=== PATIENT | male | born 1990 | race Two or more races ===

== ENCOUNTER 2025-04-16 00:16 | Inpatient (IN) | payer MEDICAID, OTHER ==
[~2025-04-16] VITALS: Ht 160 cm; Wt 83.1 kg
[2025-04-16] VITALS (8 sets, daily range): BP systolic 134–146; BP diastolic 81–91; PULSE 75–89; RESP 16–19; TEMP 97.9–98; O2SAT 93–98
--- NOTE | 2025-04-16 00:57 | ECG ---
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
[2025-04-16 01:10] LABS: Basophils # (auto) 0.1 10 ^3/uL (0-0.2); Basophils % (auto) 1.7 % (0.0-2.0); Eosinophils # (auto) 0.3 10 ^3/uL (0-0.8); Eosinophils % (auto) 3.8 % (0.0-7.0); Hematocrit 42.2 % (41.0-53.0); Hemoglobin 14.2 g/dL (13.5-17.5); Lymphocytes # (auto) 2.5 10 ^3/uL (0.4-5.4); Lymphocytes % (auto) 34.1 % (10.0-50.0); Mean Corpuscular Hemoglobin 30.6 pg (28.0-32.0); Mean Corpuscular Hgb Conc. 33.6 g/dL (32.0-36.0); Mean Corpuscular Volume 91.2 fL (80.0-100.0); Monocytes # (auto) 0.7 10 ^3/uL (0-1.3); Monocytes % (auto) 10.2 % (0.0-12.0); Neutrophils # (auto) 3.6 10 ^3/uL (1.6-8.6); Neutrophils % (auto) 50.2 % (37.0-80.0); Nucleated Red Blood Cells % 0.2 %; Platelet Count (auto) 196 10^3/uL (140-450); Red Blood Cells 4.63 10^6/uL (4.5-5.90); Red Cell Distribution Width 12.9 % (11.8-14.3); White Blood Cell 7.2 10^3/uL (4.4-10.8)
--- NOTE | 2025-04-16 01:11 | ED.PDOC ---
HPI Comments 34 year old male presents to the ED with a chief complaint of chest pain onset 4 days. Patient states he has been experiencing LT sided chest pain for the past 4 days noticed pain worsened today. Patient was seen at a different ED about 1 week ago, was told he had a heart murmur, currently has no PCP to follow up. He is also experiencing gum pain s/p tooth extraction, has taken Tylenol at home with no improvement of symptoms. PMHx asthma. Denies nausea, vomiting, dairrhea, abdominal pain, shortness of breath, fevers, chills, cough, congestion. No other symptoms or modifying factors present at this time. Chief Complaint: Chest Pain Time Seen by MD: 01:00 Reviewed Notes: Medications, Allergies Allergies: Coded Allergies: Cyclobenzaprine (Verified Allergy, Unknown, 04/16/25) Ibuprofen (Verified Allergy, Unknown, 04/16/25) Tramadol (Verified Allergy, Unknown, 04/16/25) Information Source: Patient Mode of Arrival: Ambulatory Severity: Moderate Timing: Days Duration: Since onset Prehospital treatment: None Location: Chest (L) Radiation: No Radiation Quality: Sharp Onset: At Rest Cardiac Risk Factors: None PE Risk Factors: None History of: None Modifying Factors: Nothing Past Medical History PAST MEDICAL HISTORY: Asthma Surgical History: Denies all surgeries Family History Family History: Reviewed,noncontributory to illness, No family hx of Cancer, No family hx of DM, No family hx of Heart nyla, No family hx of HTN, No family hx ofKidney nyla, No family hx of Liver nyla, No family hx of Lung nyla, No family hx of Stroke Social History Smoker: Non-Smoker Alcohol: Denies ETOH Use Drugs: Denies Drug Use Lives In: Home Constitutional: denies: chills, diaphoresis, fatigue, fever, malaise, sweats, weakness, others EENTM: reports: others (gum pain s/p tooth extraction); denies: blurred vision, double vision, ear bleeding, ear discharge, ear drainage, ear pain, ear ringing, eye pain, eye redness, hearing loss, mouth pain, mouth swelling, nasal discharge, nose bleeding, nose congestion, nose pain, photophobia, tearing, throat pain, throat swelling, voice changes Respiratory: denies: cough, hemoptysis, orthopnea, SOB at rest, shortness of breath, SOB with excertion, stridor, wheezing, others Cardiovascular: reports: chest pain; denies: dizzy spells, diaphoresis, Dyspnea on exertion, edema, irregular heart beat, left arm pain, lightheadedness, palpitations, PND, syncope, others Gastrointestinal: denies: abdomen distended, abdominal pain, blood streaked bowels, constipated, diarrhea, dysphagia, difficulty swallowing, hematemesis, melena, nausea, poor appetite, poor fluid intake, rectal bleeding, rectal pain, vomiting, others Genitourinary: denies: burning, dysuria, flank pain, frequency, hematuria, incontinence, penile discharge, penile sore, pain, testicle pain, testicle swelling, urgency, others Neurological: denies: dizziness, fainting, headache, left sided numbness, left sided weakness, numbness, paresthesia, pre-existing deficit, right sided numbness, right sided weakness, seizure, speech problems, tingling, tremors, weakness, others Musculoskeletal: denies: back pain, gout, joint pain, joint swelling, muscle pain, muscle stiffness, neck pain, others Integumetry: denies: bruises, change in color, change in hair/nails, dryness, laceration, lesions, lumps, rash, wounds, others Allergic/Immunocompromised: denies: Difficulty Healing, Frequent Infections, Hives, Itching, others Hematologic/Lymphatic: denies: anemia, blood clots, easy bleeding, easy bruising, swollen glands, others Endocrine: denies: excessive hunger, excessive sweating, excessive thirst, excessive urination, flushing, intolerance to cold, intolerance to heat, unexplained weight gain, unexplained weight loss, others Psychiatric: denies: anxiety, bipolar disorder, depression, hopeless, panic disorder, schizophrenia, sleepless, suicidal, others All Other Systems: Reviewed and Negative Physical Exam General Appearance: Normal HEENT: Normal ENT Inspection, Pharynx Normal, TMs Normal Neck: Full Range of Motion, Non-Tender, Normal, Normal Inspection Respiratory: Chest Non-Tender, Lungs Clear, No Accessory Muscle Use, No Respiratory Distress, Normal Breath Sounds Cardiovascular: No Edema, No JVD, No Murmur, No Gallop, Normal Peripheral Pulses, Regular Rate/Rhythm Breast Exam: Deferred Gastrointestinal: No Organomegaly, Non Tender, No Pulsatile Mass, Normal Bowel Sounds, Soft Genitalia: Deferred Pelvic: Deferred Rectal: Deferred Extremities: No calf tenderness, Normal capillary refill, Normal inspection, Normal range of motion, Non-tender, No pedal edema Musculoskeletal : Apperance: Normal Neurologic: Alert, gut carrier II-XII nml as Tested, No Motor Deficits, Normal Affect, Normal Mood, No Sensory Deficits Cerebellar Function: Normal Reflexes: Normal Skin: Dry, Normal Color, Warm Lymphatic: No Adenopathy EKG EKG : Pulse Rate (adult): 105 Cardiac Rhythm: ST Was a procedure done? Was a procedure done?: No CP Differential Dx Differential Diagnosis: A-fib, A-Flutter, Angina, Heart Failure, Hype rthyroidism, IN, Pulmonary Embolus, Other X-Ray, Labs, Meds, VS Vital Signs Date Time Temp Pulse Resp B/P (MAP) Pulse Ox O2 Delivery O2 Flow Rate FiO2 04/16/25 01:11 105 04/16/25 00:56 105 04/16/25 00:54 98.0 109 17 149/92 (111) 95 98.0 Lab Test 04/16/25 01:57 04/16/25 00:59 Range/Units Troponin I High Sensitivity 6 4 </=54 ng/L White Blood Count 7.2 4.4-10.8 10^3/uL Red Blood Count 4.63 4.5-5.90 10^6/uL Hemoglobin 14.2 13.5-17.5 g/dL Hematocrit 42.2 41.0-53.0 % Mean Corpuscular Volume 91.2 80.0-100.0 fL Mean Corpuscular Hemoglobin 30.6 28.0-32.0 pg Mean Corpuscular Hemoglobin Concent 33.6 32.0-36.0 g/dL Red Cell Distribution Width 12.9 11.8-14.3 % Platelet Count 196 140-450 10^3/uL Mean Platelet Volume 8.6 6.9-10.8 fL Neutrophils (%) (Auto) 50.2 37.0-80.0 % Lymphocytes (%) (Auto) 34.1 10.0-50.0 % Monocytes (%) (Auto) 10.2 0.0-12.0 % Eosinophils (%) (Auto) 3.8 0.0-7.0 % Basophils (%) (Auto) 1.7 0.0-2.0 % Neutrophils # (Auto) 3.6 1.6-8.6 10 ^3/uL Lymphocytes # (Auto) 2.5 0.4-5.4 10 ^3/uL Monocytes # (Auto) 0.7 0-1.3 10 ^3/uL Eosinophils # (Auto) 0.3 0-0.8 10 ^3/uL Basophils # (Auto) 0.1 0-0.2 10 ^3/uL Nucleated Red Blood Cells 0.2 % D-Dimer, Quantitative Pending Sodium Level 141 136-145 mmol/L Potassium Level 3.5 3.5-5.1 mmol/L Chloride Level 107 98-107 mmol/L Carbon Dioxide Level 24 20-31 mmol/L Anion Gap 10 5-15 Blood Urea Nitrogen 7 L 9-23 mg/dL Creatinine 0.99 0.700-1.30 mg/dL Glomerular Filtration Rate Calc 103 >90 mL/min BUN/Creatinine Ratio 7.1 L 10.0-20.0 Serum Glucose 91 74-106 mg/dL Calcium Level 9.0 8.7-10.4 mg/dL Total Bilirubin 0.4 0.2-1.0 mg/dL Aspartate Amino Transferase (AST) 61 H <34 U/L Alanine Aminotransferase (ALT) 92 H 7-40 U/L Alkaline Phosphatase 88 46-116 U/L Total Protein 6.9 5.7-8.2 g/dL Albumin 4.6 3.2-4.8 g/dL Time of 1ST Reevaluation: 01:30 Reevaluation 1ST: Unchanged Patient Education/Counseling: Diagnosis, Treatment, Prognosis Family Education/Counseling: No Family Present SEPSIS Sepsis Screen Date sepsis recognized/suspect: Apr 16, 2025 Time Sepsis recognized/suspect: 0048 Recent Procedure: No On Antibiotic Therapy: No Respiratory Rate >20: No Heart Rate >90: No Temp<36 C (96.8 F) or >38.3 C: No SBP <90 or MAP <65 mmHG: No New Acute Mental Status Change: No Is the patient on CPAP, BIPAP,: No Orders/Vitals/Labs Physician Orders Electrocardigram (04/16/25 01:53) Electrocardigram (04/16/25 03:53) Chest Portable (04/16/25 00:55) D-Dimer (04/16/25 03:27) Ct Angio Chest Contrast (04/16/25 05:15) Vital Signs Date Time Temp Pulse Resp B/P (MAP) Pulse Ox O2 Delivery O2 Flow Rate FiO2 04/16/25 01:11 105 04/16/25 00:56 105 04/16/25 00:54 98.0 109 17 149/92 (111) 95 98.0 Laboratory Tests Test 04/16/25 00:59 White Blood Count 7.2 10^3/uL (4.4-10.8) Departure 1 Departure Time of Disposition: 05:11 Impression: Primary Impression: Palpitations Additional Impression: Acute coronary syndrome Disposition: ADMITTED INPATIENT Admit to: Tele Condition: Guarded Discharged With: Self Comments Left-Sided Chest Pain with Suspected Acute Coronary Syndrome Chief Complaint: Left-sided chest pain for 4 days History of Present Illness: 34-year-old male with a history of borderline hypertension presents to the Emergency Department with complaints of left-sided chest pain for the past 4 days. The patient describes the pain as dull in character and reports that it worsens with exertion. This exertional component is concerning for cardiac etiology. The patient was noted to be tachycardic on presentation with a heart rate of 105 bpm. Given the clinical presentation, workup for acute coronary syndrome was initiated, including cardiac enzymes, EKG, chest imaging, and CTA to rule out pulmonary embolism. Review of Systems: Limited review of systems due to focused evaluation for chest pain. Cardiovascular: Positive for chest pain, exertional in nature. Respiratory: No reported shortness of breath, cough, or hemoptysis. Constitutional: No reported fever, chills, or significant weight changes. Medications: Current medications not specified in claim investigator. Medications administered in ED: - Aspirin - Nitroglycerin Past Medical History: Borderline hypertension Vital Signs: Heart Rate: 105 bpm (tachycardic) Other vital signs not documented in claim investigator. Lab Results: AST: 61 (elevated) ALT: 92 (elevated) Chemistry panel: Otherwise unremarkable Initial troponin: Normal at 4 Additional cardiac enzymes pending Imaging and Other Relevant Results: EKG: Tachycardia at 105 bpm, other findings not specified Chest X-ray: Mild left atelectasis versus infiltrate, no acute pathology CTA Chest: Obtained to rule out pulmonary embolus, results pending Medical Decision Making: Summary Statement: 34-year-old male with borderline hypertension presenting with 4 days of exertional, dull, left-sided chest pain, tachycardia, and mildly elevated liver enzymes. Problem List: 1. Chest pain, likely cardiac in origin 2. Tachycardia 3. Borderline hypertension 4. Elevated liver enzymes 5. Mild left atelectasis versus infiltrate on chest X-ray Differential Diagnosis: Acute coronary syndrome, myocarditis, pericarditis, pulmonary embolism, pneumonia, musculoskeletal chest pain, gastroesophageal reflux disease, anxiety. ED Course: Patient presented with concerning chest pain that worsens with exertion. Initial workup included EKG showing tachycardia, lab work with mildly elevated liver enzymes but normal initial troponin, chest X-ray showing possible left-sided infiltrate, and CTA chest to rule out PE (pending). Patient was treated with aspirin and nitroglycerin. Given the concerning presentation for cardiac etiology, decision was made to admit for acute coronary syndrome workup. Assessment and Plan: 1. Chest Pain, suspected Acute Coronary Syndrome: - Admit to telemetry unit for continued cardiac monitoring - Serial cardiac enzymes and EKGs - Continue aspirin therapy - Nitroglycerin as needed for chest pain - Cardiology consultation - Consider stress test or cardiac catheterization based on further evaluation 2. Tachycardia: - Continuous cardiac monitoring - Evaluate for underlying causes (pain, anxiety, cardiac pathology) 3. Borderline Hypertension: - Monitor blood pressure - Assess need for antihypertensive therapy during admission 4. Elevated Liver Enzymes (AST/ALT): - Repeat liver function tests - Consider hepatology consultation if persistently elevated 5. Mild Left Atelectasis versus Infiltrate: - Monitor respiratory status - Consider antibiotics if clinical evidence of pneumonia develops 6. Disposition: Admit to telemetry unit under cardiology service for further evaluation and management of suspected acute coronary syndrome. Additional Notes: Patient admitted for further cardiac evaluation Billing Information: ICD-10: R07.9 - Chest pain, unspecified ICD-10: I20.9 - Angina pectoris, unspecified ICD-10: I10 - Essential (primary) hypertension ICD-10: R00.0 - Tachycardia, unspecified Critical Care Note Critical Care Time?: Yes (35 min-critical care time only) Critical care comment: \ Total critical care time: Approximately 36 minutes Due to a high probability of clinically significant, life threatening deterioration, the patient required my highest level of preparedness to intervene emergently and I personally spent this critical care time directly and personally managing the patient. This critical care time included obtaining a history; examining the patient; pulse oximetry; ordering and review of studies; arranging urgent treatment with development of a management plan; evaluation of patient's response to treatment; frequent reassessment; and, discussions with other providers. This critical care time was performed to assess and manage the high probability of imminent, life-threatening deterioration that could result in multi-organ failure. It was exclusive of separately billable procedures and treating other patients. Stability Stability form required: No Heart Score Heart Score: Heart Score Response (Comments) Value History Moderate Suspicious 1 EKG Repolarization Disturb 1 Age <45 0 Risk Factors 1 or 2 risk factors 1 Troponin Normal limit 0 Total 3 I personally scribed for KEYON DOLAN MD ([email or web address]) on 04/16/25 at 01:11. Electronically submitted by Ade Flower ([email or web address]). KEYON DOLAN MD Apr 16, 2025 01:11
[2025-04-16 01:28] LABS: Albumin 4.6 g/dL (3.2-4.8); Alkaline Phosphatase 88 U/L (46-116); Anion Gap 10 (5-15); BUN/Creatinine Ratio 7.1 (10.0-20.0); Carbon Dioxide 24 mmol/L (20-31); Glucose 91 mg/dL (74-106); Sodium 141 mmol/L (136-145); Total Protein 6.9 g/dL (5.7-8.2)
[2025-04-16 01:29] LABS: Bilirubin, Total 0.4 mg/dL (0.2-1.0)
[2025-04-16 01:33] LABS: Alanine Aminotransferase 92 U/L (7-40); Aspartate Aminotransferase 61 U/L (<34); Blood Urea Nitrogen 7 mg/dL (9-23); Chloride 107 mmol/L (98-107); Potassium 3.5 mmol/L (3.5-5.1)
--- NOTE | 2025-04-16 04:00 | DVH ---
CHEST RADIOGRAPH Indication: chest pain Technique: Single frontal view of the chest was obtained COMPARISON: None FINDINGS: Lines and Tubes: None Lungs: Mild left basilar infiltrate and/or atelectasis. No evidence of focal consolidation. Pleura: No effusion. No pneumothorax. Cardiomediastinal contours: Unremarkable Bones: Unremarkable IMPRESSION: 1. Mild left basilar infiltrate and/or atelectasis.
[2025-04-16] MEDS: IOHEXOL 350 MG/ML 100ML IJ ONE (05:48)
[2025-04-16] MEDS: NITROGLYCERIN 0.4 MG SL TAB SL ONE (06:07)
[2025-04-16] MEDS: ASPirin 81 mg TAB PO ONE (06:08)
--- NOTE | 2025-04-16 06:23 | DVH ---
CTA Chest with intravenous contrast INDICATION: chest pain r/o PE COMPARISON: Chest radiograph performed earlier same date. TECHNIQUE: Multidetector spiral CTA of the chest was performed of the chest with 100 cc of omnipaque 350 intravenous contrast. PULMONARY ANGIOGRAPHY PROTOCOL was utilized using a bolus-tracking techniqu e centered on the main pulmonary artery. Axial, coronal and sagittal multiplanar and MIP reformats we re performed. Radiation Dose : 1. Chest: CTDI volume is 5.92 mGy. Dose-length product is 786.28 mGy*cm The dose indicators for CT are the volume Computed Tomography (CT) Dose Index (CTDIvol) and the Dose Length Product (DLP), and are measured in units of mGy and mGy-cm, respectively. These indicators are not patient dose, but values generated from the CT scanner acquisition factors. The report includes radiation exposure data for exposures received during this examination. FINDINGS: Pulmonary artery: No central, lobar or proximal segmental pulmonary embolus. Lower neck: Unremarkable thyroid. Lungs: Left lower lobe atelectasis. Central airways: Patent. Pleura: No pneumothorax. No pleural effusions. Heart/Vascular Structures: The heart is normal in size. No pericardial effusion. Thoracic aorta is no rmal in caliber. No aneurysm or dissection. Lymph Nodes: Bilateral prominent perimandibular lymph nodes measuring up to 1.1 cm on the left anteri or to the left submandibular gland. No mediastinal or hilar lymphadenopathy. Esophagus: Grossly unremarkable. Musculoskeletal: Unremarkable. Body wall: Unremarkable. Upper abdomen: Hepatic steatosis. IMPRESSION: 1. No evidence of pulmonary embolism. 2. Left lower lobe atelectasis. 3. Incidentally noted prominent perimandibular lymph nodes in the partially imaged neck. Correlatio n with outpatient CT neck or PET-CT may be obtained if clinically warranted. 4. Hepatic steatosis.
[2025-04-16] MEDS ORDERED: NITROGLYCERIN 0.4 MG SL TAB SL PRN (07:30)
[2025-04-16] MEDS ORDERED: ONDANSETRON HCL 4 MG/2 ML VIAL IV PRN (07:30)
[2025-04-16] MEDS ORDERED: ACETAMINOPHEN 325 MG TAB PO PRN (07:30)
[2025-04-16] MEDS ORDERED: MORPHINE SULFATE INJ 2 MG/ml SYRG IV PRN (07:30)
[2025-04-16] MEDS ORDERED: DOCUSATE SOD 100 MG CAP PO PRN (07:30)
[2025-04-16] MEDS ORDERED: QUET1TAB11 PO (07:32)
[2025-04-16] MEDS ORDERED: FLUO40CA PO (07:32)
--- NOTE | 2025-04-16 07:41 | DVHHP2 ---
History of Present Illness Reason for Visit: Chest Pain History of Present Illness Perez Bruno is a 34-year-old male with past medical history of untreated hypertension, bipolar, asthma, and chronic pain, who came to the hospital for chest pain. Patient states he was seen at a different hospital about a week ago and told her has a murmur. 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 Patient states he has intermittent episodes of left sided chest pain, that worsens with deep breathing. He does not have a primary care provider, and due to the chest pain he became nervous about the heart murmur so he decided to come to the hospital. Patient also has complaints of tooth pain that radiates to his jaw and ear due to recent dental work. He states he was given an antibiotic, and that he completed the course, but he continues to have pain. Cardiovascular: HTN Pulmonary: Asthma Psych: Bipolar Musculoskeletal: Chronic low back pain Past Surgical History: None Smoke: <1 pack per day ALCOHOL: heavy (2 beers daily) Drugs: Marijuana Lives: with Family Domestic Violence: Neg Review of Systems Constitutional: No: Fever, Chills, Sweats, Weakness, Malaise, Other Eyes: No: Pain, Vision change, Conjunctivae inflammation, Eyelid inflammation, Other, Redness ENT: Mouth pain (tooth pain that radiates to his jaw and ear); No: Ear pain, Ear discharge, Nose pain, Nose discharge, Nose congestion, Mouth swelling, Throat pain, Throat swelling, Other Respiratory: Pleuritic Pain; No: Cough, Dry, Shortness of breath, SOB with excertion, Wheezing, Hemoptysis, Sputum, Wheezing, Other Cardiovascular: Chest Pain; No: Palpitations, Orthopnea, Paroxysmal Noc. Dyspnea, Edema, Lt Headedness, Other Gastrointestinal: No: Nausea, Vomiting, Abdominal Pain, Diarrhea, Constipation, Melena, Hematochezia, Other Genitourinary: No Dysuria, No Frequency, No Incontinence, No Hematuria, No Retention, No Other Musculoskeletal: No: other, neck pain, shoulder pain, arm pain, back pain, hand pain, leg pain, foot pain Skin: No: Rash, Lesions, Jaundice, Bruising, Other Neurological: No: Weakness, Numbness, Incoordination, Change in speech, Confusion, Seizures, Other Allergies: Coded Allergies: Ketorolac Tromethamine (Verified Allergy, Severe, HIVES , 04/16/25) Cyclobenzaprine (Verified Allergy, Unknown, 04/16/25) Ibuprofen (Verified Allergy, Unknown, 04/16/25) Tramadol (Verified Allergy, Unknown, 04/16/25) Exam Vital Signs Vital Signs Date Time Temp Pulse Resp B/P (MAP) Pulse Ox O2 Delivery O2 Flow Rate FiO2 04/16/25 06:32 89 18 96 Room Air* 0 21 04/16/25 06:32 98.1 145/85 (105) 98.1 General Appearance: Alert, Oriented X3, Cooperative, mild distress HEENT: Atraumatic, PERRLA Respiratory: Clear to auscultation, Normal air movement Cardiovascular: Regular rate, Normal S1, Normal S2 Abdominal: Normal bowel sounds, Soft, No tenderness, No hepatospenomegaly Extremities: No clubbing, No cyanosis, No edema, Normal pulses Skin: No rashes, No breakdown, No significant lesion Neuro: Normal gait, Normal speech, Strength at 5/5 X4 ext, Normal tone Psych/Mental Status: Mental status NL, Mood NL Labs/Xrays Labs Test 04/16/25 01:57 04/16/25 00:59 Range/Units Troponin I High Sensitivity 6 </=54 ng/L White Blood Count 7.2 4.4-10.8 10^3/uL Red Blood Count 4.63 4.5-5.90 10^6/uL Hemoglobin 14.2 13.5-17.5 g/dL Hematocrit 42.2 41.0-53.0 % Mean Corpuscular Volume 91.2 80.0-100.0 fL Mean Corpuscular Hemoglobin 30.6 28.0-32.0 pg Mean Corpuscular Hemoglobin Concent 33.6 32.0-36.0 g/dL Red Cell Distribution Width 12.9 11.8-14.3 % Platelet Count 196 140-450 10^3/uL Mean Platelet Volume 8.6 6.9-10.8 fL Neutrophils (%) (Auto) 50.2 37.0-80.0 % Lymphocytes (%) (Auto) 34.1 10.0-50.0 % Monocytes (%) (Auto) 10.2 0.0-12.0 % Eosinophils (%) (Auto) 3.8 0.0-7.0 % Basophils (%) (Auto) 1.7 0.0-2.0 % Neutrophils # (Auto) 3.6 1.6-8.6 10 ^3/uL Lymphocytes # (Auto) 2.5 0.4-5.4 10 ^3/uL Monocytes # (Auto) 0.7 0-1.3 10 ^3/uL Eosinophils # (Auto) 0.3 0-0.8 10 ^3/uL Basophils # (Auto) 0.1 0-0.2 10 ^3/uL Nucleated Red Blood Cells 0.2 % D-Dimer, Quantitative 0.27 0.0-0.49 mg/L FEU Sodium Level 141 136-145 mmol/L Potassium Level 3.5 3.5-5.1 mmol/L Chloride Level 107 98-107 mmol/L Carbon Dioxide Level 24 20-31 mmol/L Anion Gap 10 5-15 Blood Urea Nitrogen 7 L 9-23 mg/dL Creatinine 0.99 0.700-1.30 mg/dL Glomerular Filtration Rate Calc 103 >90 mL/min BUN/Creatinine Ratio 7.1 L 10.0-20.0 Serum Glucose 91 74-106 mg/dL Calcium Level 9.0 8.7-10.4 mg/dL Total Bilirubin 0.4 0.2-1.0 mg/dL Aspartate Amino Transferase (AST) 61 H <34 U/L Alanine Aminotransferase (ALT) 92 H 7-40 U/L Alkaline Phosphatase 88 46-116 U/L Total Protein 6.9 5.7-8.2 g/dL Albumin 4.6 3.2-4.8 g/dL CHEST RADIOGRAPH FINDINGS: Lines and Tubes: None Lungs: Mild left basilar infiltrate and/or atelectasis. No evidence of focal consolidation. Pleura: No effusion. No pneumothorax. Cardiomediastinal contours: Unremarkable Bones: Unremarkable IMPRESSION: 1. Mild left basilar infiltrate and/or atelectasis. CTA Chest with intravenous contrast FINDINGS: Pulmonary artery: No central, lobar or proximal segmental pulmonary embolus. Lower neck: Unremarkable thyroid. Lungs: Left lower lobe atelectasis. Central airways: Patent. Pleura: No pneumothorax. No pleural effusions. Heart/Vascular Structures: The heart is normal in size. No pericardial effusion. Thoracic aorta is normal in caliber. No aneurysm or dissection. Lymph Nodes: Bilateral prominent perimandibular lymph nodes measuring up to 1.1 cm on the left anterior to the left submandibular gland. No mediastinal or hilar lymphadenopathy. Esophagus: Grossly unremarkable. Musculoskeletal: Unremarkable. Body wall: Unremarkable. Upper abdomen: Hepatic steatosis. IMPRESSION: 1. No evidence of pulmonary embolism. 2. Left lower lobe atelectasis. 3. Incidentally noted prominent perimandibular lymph nodes in the partially imaged neck. Correlation with outpatient CT neck or PET-CT may be obtained if clinically warranted. 4. Hepatic steatosis. Assessment/Plan Assessment/Plan Assessment: Pneumonia, Tooth pain, Heart Murmur, Uncontrolled hypertension, Transaminitis, Hepatic steatosis, Bipolar, Chronic pain, Tobacco dependance, Plan: Admit to Tele, ECHO, IV antibiotics, IV hydration, Antihypertensives, Home medications reconciled, Plan discussed with: Patient Date of Service: Apr 16, 2025 Billing Provider: THERON BROWN Common Visit Codes: [id number] INP/OBS CARE (MOD) THERON BROWN Apr 16, 2025 07:41
[2025-04-16] MEDS: HYDROcodone-ACET 5/325MG TAB PO PRN (08:23)
[2025-04-16] MEDS: cefTRIAXone 1GM/50ML D5W 50 ML IV SCH (09:19)
[2025-04-16] MEDS: SODIUM CHLORIDE 0.9% 1,000 ML IV ONE (09:49)
[2025-04-16] MEDS: FLUoxetine HCL 20 MG CAP PO SCH (10:47)
[2025-04-16] MEDS: LISINOPRIL 5 MG TAB PO SCH (10:47)
[2025-04-16] MEDS: AZITHROMYCIN 500MG/ 250ML 250 ML IV SCH (10:47)
--- NOTE | 2025-04-16 14:06 | DVHPN2 ---
Subjective Patient denies any symptoms at this time Reviewed: Care Plan, H&P, Labs, Medications Changes from previous H/P or p: No Changes General: Per HPI Eyes: No Pain, No Vision change, No Conjunctivae inflammation, No Eyelid inflammation, No Other, No Redness ENT: No Ear pain, No Ear discharge, No Nose pain, No Nose discharge, No Nose congestion; Mouth pain (tooth pain that radiates to his jaw and ear); No Mouth swelling, No Throat pain, No Throat swelling, No Other Cardiovascular: Chest Pain; No Palpitations, No Orthopnea, No Paroxysmal Noc. Dyspnea, No Edema, No Lt Headedness, No Other Respiratory: No Cough, No Dry, No Shortness of breath, No SOB with excertion, No Wheezing, No Hemoptysis; Pleuritic Pain; No Sputum, No Other Gastrointestinal: No Nausea, No Vomiting, No Abdominal Pain, No Diarrhea, No Constipation, No Melena, No Hematochezia, No Other Genitourinary: No Dysuria, No Frequency, No Incontinence, No Hematuria, No Retention, No Other Musculoskeletal: No other, No neck pain, No shoulder pain, No arm pain, No back pain, No hand pain, No leg pain, No foot pain Skin: No Rash, No Lesions, No Jaundice, No Bruising, No Other Objective Vitals Vital Signs Date Time Temp Pulse Resp B/P (MAP) Pulse Ox O2 Delivery O2 Flow Rate FiO2 04/16/25 13:00 98.0 77 17 150/98 (115) 95 98.0 04/16/25 07:30 Room Air* 0 21 General Appearance: Alert, Oriented X3, Cooperative, mild distress HEENT: Atraumatic, PERRLA Lungs: Clear to auscultation, Normal air movement Cardiovascular: Normal S1, Normal S2 Abdomen: Normal bowel sounds, Soft, No tenderness Musculoskeletal: Normal sensory function, Normal motor function Skin: Dry, Intact Psych/Mental Status: Mental status NL, Mood NL Medications Current Medications Medications Dose Ordered Sig/Paula Route Start Time Stop Time Status Last Admin Dose Admin Sodium Chloride 10 ml Q8HR IV 04/16/25 14:00 Acetaminophen/ Hydrocodone Bitart 1 tab Q4HP PRN PO 04/16/25 07:30 04/16/25 13:08 1 TAB Ondansetron HCl 4 mg Q4HP PRN IV 04/16/25 07:30 Docusate Sodium 100 mg BIDPRN PRN PO 04/16/25 07:30 Acetaminophen 650 mg Q6HP PRN PO 04/16/25 07:30 Nitroglycerin 0.4 mg Q5MINP PRN SL 04/16/25 07:30 Morphine Sulfate 2 mg Q30M PRN IV 04/16/25 07:30 Ceftriaxone Sodium 50 ml @ 100 mls/hr DAILY@09 IV 04/16/25 09:00 04/16/25 09:19 100 MLS/HR Azithromycin 250 ml @ 125 mls/hr DAILY IV 04/16/25 10:00 04/16/25 10:47 125 MLS/HR Lisinopril 10 mg DAILY PO 04/16/25 10:00 04/16/25 10:47 10 MG Quetiapine Fumarate 25 mg HS PO 04/16/25 22:00 Fluoxetine HCl 40 mg DAILY PO 04/16/25 10:00 04/16/25 10:47 40 MG Laboratory Results Laboratory Tests 04/16/25 00:59 Chemistry Test 04/16/25 00:59 Albumin 4.6 g/dL (3.2-4.8) Calcium Level 9.0 mg/dL (8.7-10.4) Total Protein 6.9 g/dL (5.7-8.2) Coagulation Test 04/16/25 00:59 D-Dimer, Quantitative 0.27 mg/L FEU (0.0-0.49) LFT Test 04/16/25 00:59 Alanine Aminotransferase (ALT) 92 U/L (7-40) H Alkaline Phosphatase 88 U/L (46-116) Aspartate Amino Transferase (AST) 61 U/L (<34) H Total Bilirubin 0.4 mg/dL (0.2-1.0) Labs and/or images reviewed: Labs reviewed by me, Image(s) reviewed by me Assessment/Plan Assessment/Plan Impression: -chest pain, atypical -rule out community-acquired pneumonia, questionable atelectasis -tooth extraction -bipolar disorder -PE ruled out Plan: -echocardiogram pending -CT angiogram of the chest reviewed -continue antibiotic therapy -continue home antipsychotic medications -repeat labs and chest x-ray in a.m. Total time spent with patient discussing and formulating plan of care: 35 minutes. This medical document was created using an electronic medical record system with [employer] dictation system. Although this document has been carefully reviewed, there may still be some phonetic and typographical errors. These areas are purely typographical due to imperfections of the software programs, and do not reflect any compromise in the patient's medical care. Plan discussed with: Patient, Other (RN) My Orders Orders - BALJEET ESPINOSA NP Procedure Category Date Status Time Erythrocyte LAB 04/16/25 In Process Sedimentation Rate 13:17 C-Reactive Protein LAB 04/16/25 In Process 13:17 Date of Service: Apr 16, 2025 Billing Provider: BALJEET ESPINOSA NP Common Visit Codes: [id number] INP/OBS CARE(HIGH) BALJEET ESPINOSA NP Apr 16, 2025 14:06
[2025-04-16 14:24] LABS: Erythrocyte Sedimentation Rate 2 mm/hr (0-20)
[2025-04-16] MEDS ORDERED: hydrALAZINE HCL 20 MG/ML VL IV PRN (15:15)
[2025-04-16] MEDS: SODIUM CHLOR 0.9% PF (SALINE LOCK) 10ML VIAL/SYR IV SCH (15:18)
[2025-04-16] MEDS: OXYCODONE W/ ACETAMINOPHEN 5/325MG TABLET PO PRN (17:17)
[2025-04-16] MEDS: QUEtiapine FUMARATE 25 MG TAB PO SCH (22:07)
[2025-04-17] VITALS (9 sets, daily range): BP systolic 119–154; BP diastolic 80–95; PULSE 68–100; RESP 16–20; TEMP 97.9–98.5; O2SAT 94–100
[2025-04-17 06:01] LABS: Basophils # (auto) 0.1 10 ^3/uL (0-0.2); Basophils % (auto) 1.2 % (0.0-2.0); Eosinophils # (auto) 0.3 10 ^3/uL (0-0.8); Eosinophils % (auto) 4.9 % (0.0-7.0); Hemoglobin 14.7 g/dL (13.5-17.5); Lymphocytes # (auto) 2.3 10 ^3/uL (0.4-5.4); Lymphocytes % (auto) 36.2 % (10.0-50.0); Mean Corpuscular Hemoglobin 30.5 pg (28.0-32.0); Mean Corpuscular Hgb Conc. 33.3 g/dL (32.0-36.0); Mean Corpuscular Volume 91.5 fL (80.0-100.0); Monocytes # (auto) 0.7 10 ^3/uL (0-1.3); Monocytes % (auto) 11.5 % (0.0-12.0); Neutrophils % (auto) 46.2 % (37.0-80.0); Nucleated Red Blood Cells % 0.1 %; Platelet Count (auto) 203 10^3/uL (140-450); Red Blood Cells 4.81 10^6/uL (4.5-5.90); Red Cell Distribution Width 12.9 % (11.8-14.3); White Blood Cell 6.5 10^3/uL (4.4-10.8)
[2025-04-17 06:23] LABS: Alkaline Phosphatase 86 U/L (46-116); Anion Gap 6 (5-15); BUN/Creatinine Ratio 13.6 (10.0-20.0); Blood Urea Nitrogen 16 mg/dL (9-23); Carbon Dioxide 30 mmol/L (20-31); Chloride 106 mmol/L (98-107); Glucose 93 mg/dL (74-106); Potassium 4.6 mmol/L (3.5-5.1); Sodium 142 mmol/L (136-145); Total Protein 6.6 g/dL (5.7-8.2)
[2025-04-17 06:24] LABS: Albumin 4.3 g/dL (3.2-4.8); Bilirubin, Total 0.3 mg/dL (0.2-1.0)
[2025-04-17 06:28] LABS: Alanine Aminotransferase 62 U/L (7-40); Aspartate Aminotransferase 34 U/L (<34)
--- NOTE | 2025-04-17 09:17 | DVHSR ---
APPROVED REPORT EXAM: Two-dimensional and M-mode echocardiogram with Doppler and color Doppler. Blood Pressure: 145/85 mmHg INDICATION Murmur RISK FACTORS Height: 5'3", Weight: 168 DIMENSIONS LVDd3.7 (3.8-5.7cm)LA (2D)3.7 (1.9-4.0cm)Aortic Root2.9 (2.0-3.7cm) LVDs2.0 (2.5-4.0cm)LA (MM) (1.9-4.0cm)Aortic Cusp Exc1.8 (1.5-2.0cm) EF (%) 77.0 (55-70%)Rt. Atrium4.2 (1.9-4.0cm)Asc. Aorta2.9 cm IVSd1.5 (0.7-1.1cm)RV (D)3.2 (1.8-2.4cm) Mitral Valve MitralMitral Stenosis E wave1.07m/sMV Mean GR.mmHg A wave0.97m/sMV Peak GR.mmHg E/A ratio1.12D MVAcm2 DECEL [id number] 1/2 [place] Aortic Valve Aortic ValveAortic Stenosis V11.51m/[place] Mean GR.6mmHg V21.60m/[place] Peak GR.10mmHg LVOT Diameter1.9 (1.8-2.4cm)Doppler AVA2.67cm2 Pulmonic Valve V20.82m/s Conclusion NORMAL LV EF IS 65% NORMAL VALVES NO EFFUSION NORMAL RV FUNCTION AND SIZE
--- NOTE | 2025-04-17 15:36 | DVHPN2 ---
Subjective Patient denies any symptoms at this time Reviewed: Care Plan, H&P, Labs, Medications Changes from previous H/P or p: No Changes General: Per HPI Eyes: No Pain, No Vision change, No Conjunctivae inflammation, No Eyelid inflammation, No Other, No Redness ENT: No Ear pain, No Ear discharge, No Nose pain, No Nose discharge, No Nose congestion; Mouth pain (tooth pain that radiates to his jaw and ear); No Mouth swelling, No Throat pain, No Throat swelling, No Other Cardiovascular: Chest Pain; No Palpitations, No Orthopnea, No Paroxysmal Noc. Dyspnea, No Edema, No Lt Headedness, No Other Respiratory: No Cough, No Dry, No Shortness of breath, No SOB with excertion, No Wheezing, No Hemoptysis; Pleuritic Pain; No Sputum, No Other Gastrointestinal: No Nausea, No Vomiting, No Abdominal Pain, No Diarrhea, No Constipation, No Melena, No Hematochezia, No Other Genitourinary: No Dysuria, No Frequency, No Incontinence, No Hematuria, No Retention, No Other Musculoskeletal: No other, No neck pain, No shoulder pain, No arm pain, No back pain, No hand pain, No leg pain, No foot pain Skin: No Rash, No Lesions, No Jaundice, No Bruising, No Other Objective Vitals Vital Signs Date Time Temp Pulse Resp B/P (MAP) Pulse Ox O2 Delivery O2 Flow Rate FiO2 04/17/25 13:00 97.9 95 16 138/87 (104) 98 97.9 04/17/25 08:07 Room Air* 0 21 Intake/Output Intake and Output 04/17/25 07:00 Intake Total 2629 ml Balance 2629 ml Intake Oral 1329 ml IV Total 1300 ml # Voids 5 # Bowel Movements 1 General Appearance: Alert, Oriented X3, Cooperative, mild distress HEENT: Atraumatic, PERRLA Lungs: Clear to auscultation, Normal air movement Cardiovascular: Normal S1, Normal S2 Abdomen: Normal bowel sounds, Soft, No tenderness Musculoskeletal: Normal sensory function, Normal motor function Skin: Dry, Intact Psych/Mental Status: Mental status NL, Mood NL Medications Current Medications Medications Dose Ordered Sig/Paula Route Start Time Stop Time Status Last Admin Dose Admin Sodium Chloride 10 ml Q8HR IV 04/16/25 14:00 04/17/25 05:31 10 ML Ondansetron HCl 4 mg Q4HP PRN IV 04/16/25 07:30 Docusate Sodium 100 mg BIDPRN PRN PO 04/16/25 07:30 Acetaminophen 650 mg Q6HP PRN PO 04/16/25 07:30 Nitroglycerin 0.4 mg Q5MINP PRN SL 04/16/25 07:30 Morphine Sulfate 2 mg Q30M PRN IV 04/16/25 07:30 Ceftriaxone Sodium 50 ml @ 100 mls/hr DAILY@09 IV 04/16/25 09:00 04/17/25 08:52 100 MLS/HR Azithromycin 250 ml @ 125 mls/hr DAILY IV 04/16/25 10:00 04/17/25 11:12 125 MLS/HR Lisinopril 10 mg DAILY PO 04/16/25 10:00 04/17/25 08:53 10 MG Quetiapine Fumarate 25 mg HS PO 04/16/25 22:00 04/16/25 22:07 25 MG Fluoxetine HCl 40 mg DAILY PO 04/16/25 10:00 04/17/25 08:52 40 MG Oxycodone/ Acetaminophen 1 tab Q4HP PRN PO 04/16/25 15:15 04/17/25 09:17 1 TAB Hydralazine HCl 10 mg Q4HP PRN IV 04/16/25 15:15 Laboratory Results Laboratory Tests 04/17/25 05:40 Chemistry Test 04/17/25 05:40 Albumin 4.3 g/dL (3.2-4.8) Calcium Level 10.0 mg/dL (8.7-10.4) Total Protein 6.6 g/dL (5.7-8.2) LFT Test 04/17/25 05:40 Alanine Aminotransferase (ALT) 62 U/L (7-40) H Alkaline Phosphatase 86 U/L (46-116) Aspartate Amino Transferase (AST) 34 U/L (<34) Total Bilirubin 0.3 mg/dL (0.2-1.0) Labs and/or images reviewed: Labs reviewed by me, Image(s) reviewed by me Assessment/Plan Assessment/Plan Impression: -chest pain, atypical -rule out community-acquired pneumonia, questionable atelectasis -tooth extraction -bipolar disorder -PE ruled out -nicotine dependence Plan: Events: No events overnight. Patient continues to have cough. -echocardiogram: Results reviewed -CT angiogram of the chest reviewed -continue antibiotic therapy -continue home antipsychotic medications -reassess for discharge in a.m. Total time spent with patient discussing and formulating plan of care: 35 minutes. This medical document was created using an electronic medical record system with [employer] dictation system. Although this document has been carefully reviewed, there may still be some phonetic and typographical errors. These areas are purely typographical due to imperfections of the software programs, and do not reflect any compromise in the patient's medical care. Plan discussed with: Patient, Other (RN) Date of Service: Apr 17, 2025 Billing Provider: BALJEET ESPINOSA NP Common Visit Codes: [id number] INP/OBS CARE(HIGH) BALJEET ESPINOSA NP Apr 17, 2025 15:36
[2025-04-18 05:00] VITALS: BP 116/87; PULSE 71; RESP 17; TEMP 97.5; O2SAT 97
[2025-04-18 08:00] VITALS: PULSE 81; PULSE 87; RESP 18; O2SAT 96
[2025-04-18 09:00] VITALS: BP 130/90; PULSE 81; RESP 17; TEMP 97.5; O2SAT 96
[2025-04-18] MEDS ORDERED: CEFD300C2 PO (10:34)
--- NOTE | 2025-04-18 10:42 | DVHDS2 ---
Discharge Summary Date of Admission Apr 16, 2025 at 07:23 Date of Discharge: Apr 18, 2025 Admitting Diagnosis Pneumonia Labs/Diagnostic Data: Laboratory Results Test 04/17/25 05:40 04/16/25 01:57 04/16/25 00:59 White Blood Count 6.5 10^3/uL (4.4-10.8) Red Blood Count 4.81 10^6/uL (4.5-5.90) Hemoglobin 14.7 g/dL (13.5-17.5) Hematocrit 44.0 % (41.0-53.0) Mean Corpuscular Volume 91.5 fL (80.0-100.0) Mean Corpuscular Hemoglobin 30.5 pg (28.0-32.0) Mean Corpuscular Hemoglobin Concent 33.3 g/dL (32.0-36.0) Red Cell Distribution Width 12.9 % (11.8-14.3) Platelet Count 203 10^3/uL (140-450) Mean Platelet Volume 9.0 fL (6.9-10.8) Neutrophils (%) (Auto) 46.2 % (37.0-80.0) Lymphocytes (%) (Auto) 36.2 % (10.0-50.0) Monocytes (%) (Auto) 11.5 % (0.0-12.0) Eosinophils (%) (Auto) 4.9 % (0.0-7.0) Basophils (%) (Auto) 1.2 % (0.0-2.0) Neutrophils # (Auto) 3.0 10 ^3/uL (1.6-8.6) Lymphocytes # (Auto) 2.3 10 ^3/uL (0.4-5.4) Monocytes # (Auto) 0.7 10 ^3/uL (0-1.3) Eosinophils # (Auto) 0.3 10 ^3/uL (0-0.8) Basophils # (Auto) 0.1 10 ^3/uL (0-0.2) Nucleated Red Blood Cells 0.1 % Sodium Level 142 mmol/L (136-145) Potassium Level 4.6 mmol/L (3.5-5.1) Chloride Level 106 mmol/L (98-107) Carbon Dioxide Level 30 mmol/L (20-31) Anion Gap 6 (5-15) Blood Urea Nitrogen 16 mg/dL (9-23) Creatinine 1.18 mg/dL (0.700-1.30) Glomerular Filtration Rate Calc 83 mL/min (>90) BUN/Creatinine Ratio 13.6 (10.0-20.0) Serum Glucose 93 mg/dL (74-106) Calcium Level 10.0 mg/dL (8.7-10.4) Total Bilirubin 0.3 mg/dL (0.2-1.0) Aspartate Amino Transferase (AST) 34 U/L (<34) Alanine Aminotransferase (ALT) 62 U/L (7-40) Alkaline Phosphatase 86 U/L (46-116) Total Protein 6.6 g/dL (5.7-8.2) Albumin 4.3 g/dL (3.2-4.8) Troponin I High Sensitivity 6 ng/L (</=54) Erythrocyte Sedimentation Rate 2 mm/hr (0-20) D-Dimer, Quantitative 0.27 mg/L FEU (0.0-0.49) C-Reactive Protein High Sensitivity 1.70 mg/dL (<1.0) Other Laboratory Tests 04/17/25 05:40 Brief Hx & Hospital Course: History of Present Illness Perez Bruno is a 34-year-old male with past medical history of untreated hypertension, bipolar, asthma, and chronic pain, who came to the hospital for chest pain. Patient states he was seen at a different hospital about a week ago and told her has a murmur. 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 Patient states he has intermittent episodes of left sided chest pain, that worsens with deep breathing. He does not have a primary care provider, and due to the chest pain he became nervous about the heart murmur so he decided to come to the hospital. Patient also has complaints of tooth pain that radiates to his jaw and ear due to recent dental work. He states he was given an antibiotic, and that he completed the course, but he continues to have pain. Course of hospitalization: Patient had CT scan of the chest which did show left lower lobe atelectasis versus pneumonia. Probable etiology for his chest pain. Negative for pulmonary embolism. Lymphadenopathy was noted to right neck, site where patient recently had tooth extraction. Patient had improvement with respiratory symptoms with bronchodilators as well as empiric antibiotic therapy with azithromycin and Rocephin. Patient will be discharged home and continued on cefdinir 300 mg p.o. b.i.d.. He is instructed to follow up with his PCP at his established appointment on April 30. Patient also is instructed to stop smoking tobacco cigarettes or any other products. Patient was agreeable with discharge plan. All questions answered. Physical examination General: Alert and Oriented x3. No acute distress. Well-nourished. Eyes: EOMI. Anicteric. HENT: Moist mucous membranes. Lungs: Clear to auscultation bilaterally. No accessory muscle use. Cardiovascular: Regular rate and rhythm. No murmur. No JVD. Abdomen: Soft, non-tender and non-distended. No palpable masses. Extremities: No edema. Non-tender. Skin: No rashes or lesions. Warm. Neurologic: No focal neurological deficits. CN II-XII grossly intact, but not individually tested. Psychiatric: Cooperative. Appropriate mood and affect. Total time spent with patient discussing and formulating plan of care: 35 minutes. This medical document was created using an electronic medical record system with [employer] dictation system. Although this document has been carefully reviewed, there may still be some phonetic and typographical errors. These areas are purely typographical due to imperfections of the software programs, and do not reflect any compromise in the patient's medical care. Condition at Discharge: Fair Final Diagnosis/Problems List Community-acquired pneumonia, left lower lobe, probable Gram-positive/Gram-negative etiology Secondary diagnosis: -tooth extraction -bipolar disorder -PE ruled out -nicotine dependence Discharge Disposition: Home Discharge Instruct/Medications Diet: Regular Activity: No Restrictions, As Tolerated Follow Up/Referral: Follow up with PCP on established appointment on 04/30 Medications: Cefdinir 300 mg p.o. b.i.d. x5 days Continue all home medications 36 Discharge Statement: "Patient was advised to return to the ER or call 911 if any headaches, dizziness, shortness of breath, chest pain, abdominal pain, bleeding, fevers, or worsening of medical condition. Patient was counseled about treatment plan, medications, possible side effects, patientverbalized understanding. All questions were answered to the best of my ability. This discharge took greater then 30 minutes in planning, reviewing documentation, counseling the patient, and discussing with other team members." ASSESSMENT ASSESSMENT Assessment Community-acquired pneumonia, left lower lobe, probable Gram-positive/Gram-negative etiology Date of Service: Apr 18, 2025 Billing Provider: BALJEET ESPINOSA NP Common Visit Codes: [id number]/[id number] DISCH DAY >30min BALJEET ESPINOSA NP Apr 18, 2025 10:42
[2025-04-18 11:03] VITALS: PULSE 81; RESP 18; O2SAT 96
== END 2025-04-18 13:54 | disposition home or self-care (01) | DRG 137 ==
LOC: ER 00:16 → OVERFLOW 07:23 → TELE-EAST 13:56
PROVIDERS: ADMIT Nurse Practitioner Acute Care; ATTEND Nurse Practitioner Acute Care
DX: J15.69 Pneumonia due to other Gram-negative bacteria (principal); I24.9 Acute ischemic heart disease, unspecified; K76.0 Fatty (change of) liver, not elsewhere classified; F31.9 Bipolar disorder, unspecified; J45.909 Unspecified asthma, uncomplicated; I10 Essential (primary) hypertension; J98.11 Atelectasis; J15.9 Unspecified bacterial pneumonia; F17.210 Nicotine dependence, cigarettes, uncomplicated; G89.29 Other chronic pain; K08.89 Other specified disorders of teeth and supporting structures; R01.1 Cardiac murmur, unspecified; Z88.6 Allergy status to analgesic agent
CPT/HCPCS: 36415; 71045; 71275; 80053; 84484; 85025; 85379; 85652; 86141; 93005; 93306; 96365; 99291; G0378

== ENCOUNTER 2025-06-04 01:37 | Emergency (ER) | payer MEDICAID ==
[~2025-06-04] VITALS: Ht 162.6 cm; Wt 76.0 kg
[~2025-06-04 01:37] MED LIST: CEFD300C2 PO; FLUO40CA PO; QUET1TAB11 PO
[2025-06-04 02:47] LABS: Hematocrit 43.7 % (41.0-53.0); Hemoglobin 15.0 g/dL (13.5-17.5); Mean Corpuscular Hemoglobin 31.5 pg (28.0-32.0); Mean Corpuscular Volume 91.5 fL (80.0-100.0); Nucleated Red Blood Cells % 0.1 %
[2025-06-04 02:59] LABS: Alkaline Phosphatase 86 U/L (46-116); Anion Gap 12 (5-15); BUN/Creatinine Ratio 19.3 (10.0-20.0); Blood Urea Nitrogen 17 mg/dL (9-23); Calcium 9.1 mg/dL (8.7-10.4); Carbon Dioxide 21 mmol/L (20-31); Sodium 142 mmol/L (136-145); Total Protein 7.0 g/dL (5.7-8.2)
[2025-06-04 03:01] LABS: Alanine Aminotransferase 69 U/L (7-40); Albumin 4.8 g/dL (3.2-4.8); Bilirubin, Total 0.2 mg/dL (0.2-1.0); Chloride 109 mmol/L (98-107); Glucose 130 mg/dL (74-106); Potassium 3.4 mmol/L (3.5-5.1)
--- NOTE | 2025-06-04 03:29 | DVH ---
CHEST RADIOGRAPH Indication: chest pain Technique: Single frontal view of the chest was obtained Comparison: CT CT ANGIO CHEST CONTRAST on DOS: 04/16/25, XY CHEST PORTABLE on DOS: 04/16/25 IMPRESSION: Heart appears normal in size. The lungs appear clear without focal airspace opacity, effusion, or pn eumothorax
[2025-06-04 03:41] VITALS: TEMP 99
--- NOTE | 2025-06-04 03:43 | ED.PDOC ---
HPI Comments 35-year-old homeless male patient c/o 04/09 sharp, non radiating, intermittent chest pain x 2 days. pt denies n/v/d, sob, joiner, blurred vision or dizziness. pt a&ox4, vss, rr even and unlabored on ra. Patient reports no past sick difficult medical history does note history of asthma which has been controlled. Denies any cardiac stents high cholesterol or hypertension currently does not take any medications. Chief Complaint: Chest Pain Time Seen by MD: 02:30 Reviewed Notes: Nurses Notes, Medications, Allergies Allergies: Coded Allergies: Ketorolac Tromethamine (Verified Allergy, Severe, HIVES , 04/16/25) Cyclobenzaprine (Verified Allergy, Unknown, 04/16/25) Ibuprofen (Verified Allergy, Unknown, 04/16/25) Tramadol (Verified Allergy, Unknown, 04/16/25) Home Meds Active Scripts Cefdinir (Cefdinir) 300 Mg Cap, 1 CAP PO BID for 5 Days, #10 CAP Prov:BALJEET ESPINOSA ANTIQUE COLLECTOR 04/18/25 Reported Medications Fluoxetine Hcl (Fluoxetine Hcl) 40 Mg Cap, 1 CAP PO DAILY 04/16/25 Quetiapine Fumerate (QUETIAPINE FUMARATE) 25 Mg Tab, 1 TAB PO HS 04/16/25 Information Source: Patient Mode of Arrival: Ambulatory Past Medical History PAST MEDICAL HISTORY: Asthma Surgical History: Denies all surgeries Family History Family History: Reviewed,noncontributory to illness, No family hx of Cancer, No family hx of DM, No family hx of Heart nyla, No family hx of HTN, No family hx ofKidney nyla, No family hx of Liver nyla, No family hx of Lung nyla, No family hx of Stroke Social History Smoker: Non-Smoker Alcohol: Denies ETOH Use Drugs: Denies Drug Use Lives In: Home Physical Exam General Appearance: No Apparent Distress, Normal HEENT: Normal ENT Inspection, Pharynx Normal, TMs Normal Neck: Full Range of Motion, Non-Tender Respiratory: Lungs Clear, No Respiratory Distress, Normal Breath Sounds Cardiovascular: No Edema, No JVD, No Murmur, No Gallop, Normal Peripheral Pulses, Regular Rate/Rhythm Breast Exam: Deferred Gastrointestinal: No Organomegaly, Non Tender, No Pulsatile Mass, Normal Bowel Sounds, Soft Genitalia: Deferred Pelvic: Deferred Rectal: Deferred Extremities: No calf tenderness, Normal capillary refill, Normal inspection, Normal range of motion, Non-tender, No pedal edema Musculoskeletal : Apperance: Normal Neurologic: Alert, No Motor Deficits, Normal Affect, Normal Mood, No Sensory Deficits Cerebellar Function: Normal Reflexes: NOT DONE Skin: Dry, Normal Color, Warm Lymphatic: No Adenopathy Was a procedure done? Was a procedure done?: No CP Differential Dx Differential Diagnosis: PAC's, PVC's Differential Diagnosis: Angina, Chest Wall Pain, Esophageal reflux/spasm, Gastritis, Myocardial Infarction, Pneumonia X-Ray, Labs, Meds, VS Vital Signs Date Time Temp Pulse Resp B/P (MAP) Pulse Ox O2 Delivery O2 Flow Rate FiO2 06/04/25 01:48 99.0 96 20 125/78 100 99.0 06/04/25 01:43 97 Lab Test 06/04/25 02:58 06/04/25 02:02 Range/Units Troponin I High Sensitivity < 3 L < 3 L </=54 ng/L White Blood Count 7.2 4.4-10.8 10^3/uL Red Blood Count 4.77 4.5-5.90 10^6/uL Hemoglobin 15.0 13.5-17.5 g/dL Hematocrit 43.7 41.0-53.0 % Mean Corpuscular Volume 91.5 80.0-100.0 fL Mean Corpuscular Hemoglobin 31.5 28.0-32.0 pg Mean Corpuscular Hemoglobin Concent 34.4 32.0-36.0 g/dL Red Cell Distribution Width 12.8 11.8-14.3 % Platelet Count 278 140-450 10^3/uL Mean Platelet Volume 8.4 6.9-10.8 fL Neutrophils (%) (Auto) 36.6 L 37.0-80.0 % Lymphocytes (%) (Auto) 49.0 10.0-50.0 % Monocytes (%) (Auto) 7.4 0.0-12.0 % Eosinophils (%) (Auto) 5.6 0.0-7.0 % Basophils (%) (Auto) 1.4 0.0-2.0 % Neutrophils # (Auto) 2.6 1.6-8.6 10 ^3/uL Lymphocytes # (Auto) 3.5 0.4-5.4 10 ^3/uL Monocytes # (Auto) 0.5 0-1.3 10 ^3/uL Eosinophils # (Auto) 0.4 0-0.8 10 ^3/uL Basophils # (Auto) 0.1 0-0.2 10 ^3/uL Nucleated Red Blood Cells 0.1 % Sodium Level 142 136-145 mmol/L Potassium Level 3.4 L 3.5-5.1 mmol/L Chloride Level 109 H 98-107 mmol/L Carbon Dioxide Level 21 20-31 mmol/L Anion Gap 12 5-15 Blood Urea Nitrogen 17 9-23 mg/dL Creatinine 0.88 0.700-1.30 mg/dL Glomerular Filtration Rate Calc 115 >90 mL/min BUN/Creatinine Ratio 19.3 10.0-20.0 Serum Glucose 130 H 74-106 mg/dL Calcium Level 9.1 8.7-10.4 mg/dL Total Bilirubin 0.2 0.2-1.0 mg/dL Aspartate Amino Transferase (AST) 62 H 13-40 U/L Alanine Aminotransferase (ALT) 69 H 7-40 U/L Alkaline Phosphatase 86 46-116 U/L B-Type Natriuretic Peptide 2.05 0-100 pg/mL Total Protein 7.0 5.7-8.2 g/dL Albumin 4.8 3.2-4.8 g/dL X-Ray, Labs, Meds, VS Comment CBC, CMP, BNP within normal limits. Troponin x2 less than 3.0. EKG shows no ST-elevation or acute ectopy. Patient patient brought back for re-examination and to go over results patient sleeping and snoring. Denies any pain at this time. Advised to follow up with his PCP in two days if unable follow up urgent care or in the ER. Advised of ER return precautions patient indicates understanding and agrees with discharge plan of care. Time of 1ST Reevaluation: 02:45 Reevaluation 1ST: Unchanged Time of 2ND Reevaluation: 03:38 Reevaluation 2ND: Improved Patient Education/Counseling: Diagnosis, Treatment, Prognosis, Need For Follow Up Family Education/Counseling: No Family Present SEPSIS Sepsis Screen Date sepsis recognized/suspect: Jun 04, 2025 Time Sepsis recognized/suspect: 0154 Recent Procedure: No On Antibiotic Therapy: No Respiratory Rate >20: No Heart Rate >90: Yes Temp<36 C (96.8 F) or >38.3 C: No SBP <90 or MAP <65 mmHG: No New Acute Mental Status Change: No Is the patient on CPAP, BIPAP,: No Physician Orders Electrocardigram (06/04/25 01:43) Troponin-I Hs (06/04/25 04:43) Electrocardigram (06/04/25 02:43) Chest Two Views Routine (06/04/25 02:30) Vital Signs Date Time Temp Pulse Resp B/P (MAP) Pulse Ox O2 Delivery O2 Flow Rate FiO2 06/04/25 01:48 99.0 96 20 125/78 100 99.0 06/04/25 01:43 97 Laboratory Tests Test 06/04/25 02:02 White Blood Count 7.2 10^3/uL (4.4-10.8) Departure 1 Departure Time of Disposition: 03:38 Impression: Primary Impression: Chest pain Qualified Codes: R07.9 - Chest pain, unspecified Disposition: 01 HOME / SELF CARE / HOMELESS Condition: Stable Discharged With: Self Critical Care Note Critical Care Time?: No Stability Stability form required: No Heart Score Heart Score: Heart Score Response (Comments) Value History N/A 0 EKG Normal 0 Age <45 0 Risk Factors No known risk factors 0 Troponin Normal limit 0 Total 0 AMADEO NICKERSON Jun 04, 2025 03:43
[2025-06-04 03:54] VITALS: BP 100/64; PULSE 103; RESP 18; O2SAT 93
--- NOTE | 2025-06-05 13:31 | ECG ---
[facility] Test Date: 2025-06-04 Test Time: 01:43:54 Pat Name: JORGE NAVA Department: [facility] ED Room: Gender: Flying [employer] Salesperson: ALBAN : 1990 Requested By: MASOUD SHARMA Order Number: [id number] Reading MD: Measurements Intervals [place] Rate: 97 P: 55 MS: 147 QRS: 73 QRSD: 80 T: 26 QT: 381 QTc: 484 Interpretive Statements Sinus rhythm Borderline prolonged QT interval Please click the below link to view image of tracing.
== END 2025-06-04 04:01 | disposition home or self-care (01) ==
LOC: ER 01:37
DX: R07.89 Other chest pain (principal); J45.909 Unspecified asthma, uncomplicated; R06.02 Shortness of breath; Z79.899 Other long term (current) drug therapy; Z88.5 Allergy status to narcotic agent; Z88.6 Allergy status to analgesic agent; Z88.8 Allergy status to other drugs, medicaments and biological substances
CPT/HCPCS: 36415; 71046; 80053; 83880; 84484; 85025; 93005